=== PATIENT | male | born 1995 | race Caucasian/White ===

== ENCOUNTER 2019-11-04 04:34 | Emergency (ER) | payer SELFPAY ==
[~2019-11-04] VITALS: Ht 172.7 cm; Wt 68.0 kg
[2019-11-04] MEDS ORDERED: HYDROCODONE/ACETAMINOPHEN 5/325MG TABLET PO ONE (06:15)
[2019-11-04 06:20] VITALS: BP 148/94
== END 2019-11-04 07:09 | disposition home or self-care (01) ==
LOC: ER 05:13
DX: S90.414A Abrasion, right lesser toe(s), initial encounter (principal); F10.129 Alcohol abuse with intoxication, unspecified; W17.89XA Other fall from one level to another, initial encounter; Y93.89 Activity, other specified; Y92.89 Other specified places as the place of occurrence of the external cause; Y99.8 Other external cause status; Y90.9 Presence of alcohol in blood, level not specified
CPT/HCPCS: 99284